=== PATIENT | male | born 1990 | race Hispanic/Latino ===

== ENCOUNTER 2024-06-09 12:19 | Emergency (ER) | payer SELFPAY ==
[~2024-06-09] VITALS: Ht 160 cm; Wt 52.6 kg
[2024-06-09 12:41] VITALS: TEMP 98.6
[2024-06-09] MEDS: LIDOCAINE HCL 1% 20 ML VIAL ONE (13:20)
[2024-06-09] MEDS: ceFAZolin SODIUM 1 GM VIAL IM STA (13:20)
[2024-06-09] MEDS: teTANUS/diphthERIA TOXOID [ADULT] 0.5 ML VIAL IM ONE (13:23)
[2024-06-09] MEDS: LIDOCAINE HCL-MPF 1% 2ML VIAL IV STA (13:26)
[2024-06-09] MEDS ORDERED: CEPH500B PO (14:07)
[2024-06-09 14:23] VITALS: BP 129/77; PULSE 78; RESP 18; O2SAT 98
== END 2024-06-09 14:33 | disposition home or self-care (01) ==
LOC: EDH 12:19
DX: S51.811A Laceration without foreign body of right forearm, initial encounter (principal); W26.8XXA Contact with other sharp object(s), not elsewhere classified, initial encounter; Y93.89 Activity, other specified; Y92.89 Other specified places as the place of occurrence of the external cause; Y99.8 Other external cause status
CPT/HCPCS: 99284; 90714; 90471; 12002; 96372; J0690